=== PATIENT | male | born 1985 | race Caucasian/White ===

== ENCOUNTER 2017-06-14 17:32 | Emergency (ER) | payer OTHER ==
[~2017-06-14] VITALS: Ht 185.4 cm; Wt 108.9 kg
[~2017-06-14 17:32] MED LIST: CYCL10 PO; HYDACE5 PO; IBUP400; IBUP600 PO; IBUP800 PO; LOPE2C PO; META800 PO; NAPR500 PO; NAPR550 PO; OXYACE7.5T PO; PENVK500 PO; PROACE100 PO; PROM25 PO; RXPENVK250 PO; RXTRAM50 PO; TRAM50 PO; [UNRECOGNIZED DRUG - REMARK]
[2017-06-14] MEDS ORDERED: Percocet 5-3251 EACH PO (20:37)
[2017-06-14] MEDS ORDERED: CYCL10 PO (20:37)
== END 2017-06-14 20:49 | disposition home or self-care (01) ==
LOC: ER 17:32
DX: R07.81 Pleurodynia (principal); F17.200 Nicotine dependence, unspecified, uncomplicated; W21.01XA Struck by football, initial encounter
CPT/HCPCS: 71111; 96372; 99283; J1885

== ENCOUNTER 2018-02-06 16:09 | Emergency (ER) | payer OTHER ==
[~2018-02-06] VITALS: Ht 185.4 cm; Wt 84.4 kg
[~2018-02-06 16:09] MED LIST changes: +Percocet 5-3251 EACH PO
[2018-02-06] MEDS ORDERED: Bactrim Ds Tab1 EACH PO (17:33)
[2018-02-06] MEDS ORDERED: Cephalexin500 MG PO (17:33)
== END 2018-02-06 17:41 | disposition home or self-care (01) ==
LOC: ER 16:09
DX: L03.113 Cellulitis of right upper limb (principal); L03.114 Cellulitis of left upper limb; L03.116 Cellulitis of left lower limb; F17.200 Nicotine dependence, unspecified, uncomplicated
CPT/HCPCS: 99283

== ENCOUNTER 2019-01-23 22:47 | Emergency (ER) | payer OTHER ==
[~2019-01-23] VITALS: Ht 177.8 cm; Wt 84.8 kg
[~2019-01-23 22:47] MED LIST changes: +Bactrim Ds Tab1 EACH PO; +Cephalexin500 MG PO
== END 2019-01-24 00:06 | disposition left against medical advice (07) ==
LOC: ER 22:47
DX: S61.011A Laceration without foreign body of right thumb without damage to nail, initial encounter (principal); X58.XXXA Exposure to other specified factors, initial encounter; F17.200 Nicotine dependence, unspecified, uncomplicated
CPT/HCPCS: 12002; 90471; 99282-25